=== PATIENT | female | born 1965 | race Caucasian/White ===

== ENCOUNTER → 2016-07-04 | Outpatient (CLI) | payer MEDICARE, OTHER ==
[~2016-07-04] MED LIST: CLARITIN10 MG PO
== END ==
LOC: RAD 12:16
DX: M54.17 Radiculopathy, lumbosacral region (principal); M25.561 Pain in right knee; M47.816 Spondylosis without myelopathy or radiculopathy, lumbar region
CPT/HCPCS: 72110; 73562